=== PATIENT | male | born 1955 | race Caucasian/White ===

== ENCOUNTER 2017-03-25 13:58 | Emergency (ER) | payer BC ==
[~2017-03-25] VITALS: Ht 175.3 cm; Wt 90.7 kg
[2017-03-25 14:05] VITALS: BP 152/85
--- NOTE | 2017-03-25 14:11 | ED Neurological Problem ---
General Stated Complaint: SLURRED SPEECH//CANNOT HOLD ITEMS Source: patient, family Exam Limitations: no limitations (FABRICIO BECKFORD APRN) History of Present Illness Time seen by provider: 14:08 Initial Comments To ER with strokelike symptoms. He states that 1.5 hours ago while he was at work laying on his back working on a vehicle striking something with a hammer he noticed these symptoms. Symptoms included slurred speech and dropping tools with the left hand as well as left hand tingling. He went inside and sat down and his symptoms resolved after about 5 minutes. He's never had these symptoms before. He called his who brought him to the emergency room. He does report a slight headache to the posterior right side of the head. This time he is symptom-free. He does not smoke. He does not take daily aspirin or Plavix. Timing/Duration: 1-3 hours Severity: moderate Associated Symptoms: No nausea/vomiting, No numbness in legs/feet, paresthesia , No ringing in ears, No seizures, No sleepy, No slurred speech, No tingling in legs/feet (FABRICIO BECKFORD APRN) Allergies and Home Medications Allergies Coded Allergies: No Allergy Information Available (Unverified , 03/25/17) Constitutional: see HPI Eyes: No Symptoms Reported Ears, Nose, Mouth, Throat: no symptoms reported Respiratory: no symptoms reported Cardiovascular: no symptoms reported Genitourinary: no symptoms reported Musculoskeletal: see HPI Skin: no symptoms reported Psychiatric/Neurological: See HPI, Denies Anxiety, Denies Depressed, Denies Emotional Problems, Denies Cognitive Dysfunction, Headache, Denies Numbness, Denies [place] Seizures, Tingling Endocrine: No Symptoms Reported (FABRICIO BECKFORD APRN) Physical Exam Vital Signs Vital Sign - Last 12Hours 03/25/17 13:59 Temp 98.2 Pulse 88 Resp 16 B/P (MAP) 152/85 Pulse Ox 98 (JOE RAJPUT MD) Vital Signs Capillary Refill : (FABRICIO BECKFORD APRN) General Appearance: WD/WN, no apparent distress HEENT: PERRL/EOMI, normal ENT inspection Neck: non-tender, full range of motion Respiratory: normal breath sounds, no respiratory distress, no accessory muscle use Cardiovascular: regular rate, rhythm, no murmur Gastrointestinal: normal bowel sounds, non tender, soft Extremities: normal range of motion, non-tender Neurologic/Psychiatric: alert, normal mood/affect, oriented x 3 Crainal Nerves: normal hearing, normal speech, PERRL Motor/Sensory: no motor deficit, no sensory deficit, no pronator drift Skin: normal color, warm/dry (FABRICIO BECKFORD APRN) Stroke Onset of Symptoms Date of Onset of Symptoms: Mar 25, 2017 Time of Symptom Onset: 12:45 Onset of Symptoms: Yes (FABRICIO BECKFORD APRN) NIH Stroke Scale Assessment Select: Initial Level of Consciousness: 0=Alert Level of Consciousness-Questio: 0=Answers both month/age LOC Commands: 0=Performs both tasks Gaze: 0=Normal Visual Kaur: 1=Partial hemianopia Facial Movement (Facial Paresi: 0=Normal symmetrical mnt Motor Function-Arms Right: 0=No drift Motor Function-Arms Left: 0=No drift Motor Function-Legs Right: 0=No drift Motor Function-Legs Left: 0=No drift Limb Ataxia: 0=Absent Sensory: 0=Normal:no loss Best Language: 0=No aphasia Dysarthria: 0=Normal Extinction & Inattention: 0=No abnormality NIH Stroke Scale Score: 0 (FABRICIO BECKFORD APRN) Stroke Thrombolytic Exclusion Age 18 or Over: Yes Acute intenal hemorrhage: No History of CVA: No Uncontrolled Coagulation Defec: No Intracranial Hemorrhage: No Severe Hypertension: No GI or Bleed: No Subarachnoid Hemorrhage: No Intracranial Neoplasm/Aneurysm: No Oral Anticoagulants: No Surgery or Trauma: No Puncture of Non-Compressible V: No Recent CPR: No Diabetic Hemorrhagic Retinopat: No Organ Biopsy: No Recent Obstetric Delivery: No Glucose: No Significant Hepatic Dysfunctio: No NIH Stoke Scale >22: No Bacterial Endocarditis: No Pericarditis: No Improving Symptoms: No Platelets: No TPA Contraindication: No (FABRICIO BECKFORD APRN) Progress/Results/Core Measures Results/Orders Lab Results Laboratory Tests Test 03/25/17 14:10 Range/Units White Blood Count 9.3 4.3-11.0 10^3/uL Red Blood Count 4.95 4.35-5.85 10^6/uL Hemoglobin 14.9 13.3-17.7 G/DL Hematocrit 44 40-54 % Mean Corpuscular Volume 89 80-99 FL Mean Corpuscular Hemoglobin 30 25-34 PG Mean Corpuscular Hemoglobin Concent 34 32-36 G/DL Red Cell Distribution Width 12.6 10.0-14.5 % Platelet Count 322 130-400 10^3/uL Mean Platelet Volume 9.2 7.4-10.4 FL Neutrophils (%) (Auto) 67 42-75 % Lymphocytes (%) (Auto) 20 12-44 % Monocytes (%) (Auto) 8 0-12 % Eosinophils (%) (Auto) 5 0-10 % Basophils (%) (Auto) 1 0-10 % Neutrophils # (Auto) 6.2 1.8-7.8 X 10^3 Lymphocytes # (Auto) 1.8 1.0-4.0 X 10^3 Monocytes # (Auto) 0.7 0.0-1.0 X 10^3 Eosinophils # (Auto) 0.5 H 0.0-0.3 10^3/uL Basophils # (Auto) 0.1 0.0-0.1 10^3/uL Prothrombin Time 11.9 L 12.2-14.7 SEC INR Comment 0.9 0.8-1.4 Sodium Level 144 135-145 MMOL/L Potassium Level 4.1 3.6-5.0 MMOL/L Chloride Level 111 H 98-107 MMOL/L Carbon Dioxide Level 26 21-32 MMOL/L Anion Gap 7 5-14 MMOL/L Blood Urea Nitrogen 22 H 7-18 MG/DL Creatinine 1.14 0.60-1.30 MG/DL Estimat Glomerular Filtration Rate > 60 BUN/Creatinine Ratio 19 0-20 Glucose Level 96 70-105 MG/DL Calcium Level 9.9 8.5-10.1 MG/DL Total Bilirubin 0.5 0.1-1.0 MG/DL Aspartate Amino Transf (AST/SGOT) 20 5-34 U/L Alanine Aminotransferase (ALT/SGPT) 21 0-55 U/L Alkaline Phosphatase 82 40-136 U/L Total Protein 7.5 6.4-8.2 GM/DL Albumin 4.0 3.2-4.5 GM/DL (JOE RAJPUT MD) Medications Given in ED Current Medications Medications Dose Ordered Sig/Keiry Route Start Time Stop Time Status Last Admin Dose Admin Iohexol 100 ml ONCE ONCE IV 03/25/17 15:15 03/25/17 15:16 DC 03/25/17 15:33 80 ML Sodium Chloride 100 ml ONCE ONCE IV 03/25/17 15:15 03/25/17 15:16 DC 03/25/17 15:33 80 ML (JOE RAJPUT MD) Vital Signs/I&O Vital Sign - Last 12Hours 03/25/17 13:59 Temp 98.2 Pulse 88 Resp 16 B/P (MAP) 152/85 Pulse Ox 98 (JOE RAJPUT MD) Diagnostic Imaging Diagonstic Imaging: CT Comments NAME: DELILAH YATES [facility] REC#: [id number] PT STATUS: REG ER : 1955 PHYSICIAN: FABRICIO BECKFORD APRN ADMIT DATE: 03/25/17/ER Signed Date of Exam:03/25/17 CT HEAD WO-R/O STROKE EXAM: CT head. TECHNIQUE: Noncontrast axial images of the brain were obtained. INDICATION: Slurred speech No prior studies are available for comparison. FINDINGS: There is no intracranial hemorrhage, edema or mass effect. There is a suggestion of encephalomalacia in the right frontal lobe involving a small region adjacent to the sylvian fissure probably related to an old infarct. No hydrocephalus. The orbits appear unremarkable. There is a partial opacification in the ethmoidal air cells. The calvarium, the orbits appear grossly unremarkable.. 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 No intracranial hemorrhage. Dictated by: Dictated on workstation # [id number] Dict: 03/25/17 1542 Trans: 03/25/17 1546 [facility] [id number] Interpreted by: JUJU OLIVA MD Electronically signed by: JUJU OLIVA MD 03/25/17 1546 (FABRICIO BECKFORD APRN) Departure Communication Progress Notes 1617-I discussed the case with Dr. Patel from neurology at . She will review the CT scan with her radiologist and call back. (FABRICIO BECKFORD APRN) Progress Notes 1630 took over the patient for Tiffanie. Dr. Patel called back from stating she was able to see the noncontrast films but unable to see the CT angiography. We have asked radiology to rescan the images. [address] Patel. She reports the second transmission was successful and she had looked at the CT angiogram with radiology. There is there conclusion that this is a chronic obstruction on the right. There is also an approximately 40 percent lesion on the left carotid. She is concerned about unstable plaque there and would recommend an MRI with contrast to evaluate the plaque. In addition and empirically she recommends both aspirin and Plavix at this time period of 3 months and then single agent. He sees Dr. Hafsa Tran recently she would be the one to follow this finally she would like aggressive blood pressure control. These recommendations have been discussed with the patient and he is not that enthusiastic about all these medicines but would be willing to comply. He was reminded that the consequence would be a debilitating stroke. Accordingly we will make these arrangements. (JOE RAJPUT MD) Impression Impression: Primary Impression: TIA (transient ischemic attack) Additional Impression: Right carotid artery occlusion Disposition: 01 HOME, SELF-CARE Condition: Improved Departure-Patient Inst. Decision time for Depature: 17:38 (JOE RAJPUT MD) Referrals: NO,LOCAL PHYSICIAN (PCP) Primary Care Physician Patient Instructions: Transient Ischemic Attack (DC) Add. Discharge Instructions: MRI with contrast tomorrow. Aspirin 81 mg daily (tonight Plavix 75 mg tonight and then again tomorrow in the a.m. and daily in the a.m. Appointment Dr. Tran next week for blood pressure evaluation Scripts Clopidogrel Bisulfate (Plavix) 75 Mg Tablet 75 MG PO DAILY, #30 TAB Prov: JOE RAJPUT MD 03/25/17 FABRICIO BECKFORD APRN Mar 25, 2017 14:11 JOE RAJPUT MD Mar 25, 2017 16:39
[2017-03-25 14:32] LABS: BASOPHILS # (AUTO) 0.1 10^3/uL (0.0-0.1); BASOPHILS % (AUTO) 1 % (0-10); EOSINOPHILS # (AUTO) 0.5 10^3/uL (0.0-0.3); EOSINOPHILS % (AUTO) 5 % (0-10); LYMPHOCYTES # (AUTO) 1.8 X 10^3 (1.0-4.0); LYMPHOCYTES % (AUTO) 20 % (12-44); MEAN CORPUSCULAR HEMOGLOBIN 30 PG (25-34); MEAN CORPUSCULAR HGB CONC 34 G/DL (32-36); MEAN CORPUSCULAR VOLUME 89 FL (80-99); MEAN PLATELET VOLUME 9.2 FL (7.4-10.4); MONOCYTES # (AUTO) 0.7 X 10^3 (0.0-1.0); MONOCYTES % (AUTO) 8 % (0-12); NEUTROPHILS # (AUTO) 6.2 X 10^3 (1.8-7.8); NEUTROPHILS % (AUTO) 67 % (42-75); PLATELET COUNT 322 10^3/uL (130-400); RED BLOOD COUNT 4.95 10^6/uL (4.35-5.85); RED CELL DISTRIBUTION WIDTH 12.6 % (10.0-14.5); WHITE BLOOD COUNT 9.3 10^3/uL (4.3-11.0)
[2017-03-25 14:41] LABS: INR 0.9 (0.8-1.4); PROTHROMBIN TIME PATIENT 11.9 SEC (12.2-14.7)
[2017-03-25 14:45] LABS: ALANINE AMINOTRANSFERASE 21 U/L (0-55); ANION GAP 7 MMOL/L (5-14); ASPARTATE AMINO TRANSFERASE 20 U/L (5-34); BILIRUBIN,TOTAL 0.5 MG/DL (0.1-1.0); BLOOD UREA NITROGEN 22 MG/DL (7-18); BUN/CREATININE RATIO 19 (0-20); CALCIUM 9.9 MG/DL (8.5-10.1); CARBON DIOXIDE 26 MMOL/L (21-32); CHLORIDE 111 MMOL/L (98-107); CREATININE SERUM 1.14 MG/DL (0.60-1.30); GFR ESTIMATED > 60; GLUCOSE 96 MG/DL (70-105); HEMOLYSIS 8 (-100-29); ICTERUS 0.6 (-100-1.9); LIPEMIA 3 (-100-49); POTASSIUM 4.1 MMOL/L (3.6-5.0); SODIUM 144 MMOL/L (135-145); TOTAL PROTEIN 7.5 GM/DL (6.4-8.2)
[2017-03-25] MEDS ORDERED: NS 100 ML (IVPB) BAG IV ONE (15:15)
[2017-03-25] MEDS ORDERED: IOHEXOL 350 MG/ML 100 ML (OMNIPAQUE 350) VIAL IV ONE (15:15)
--- NOTE | 2017-03-25 15:48 | Diagnostic Imaging Report ---
EXAM: CT head. TECHNIQUE: Noncontrast axial images of the brain were obtained. INDICATION: Slurred speech No prior studies are available for comparison. FINDINGS: There is no intracranial hemorrhage, edema or mass effect. There is a suggestion of encephalomalacia in the right frontal lobe involving a small region adjacent to the sylvian fissure probably related to an old infarct. No hydrocephalus. The orbits appear unremarkable. There is a partial opacification in the ethmoidal air cells. The calvarium, the orbits appear grossly unremarkable.. 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 No intracranial hemorrhage. Dictated by: Dictated on workstation # [id number]
--- NOTE | 2017-03-25 16:42 | Diagnostic Imaging Report ---
PROCEDURE: CT angiography of the head and CT angiography of the neck with and without contrast. TECHNIQUE: Contiguous noncontrast images were obtained from the skull base through the vertex. After intravenous contrast administration, helical CT angiography of the neck was performed. Source data was reformatted into multiple MIP projections. Delayed post contrast acquisition was also obtained. INDICATION: Slurred speech. Left hand weakness. FINDINGS: CTA neck: There is complete occlusion of the right internal carotid artery just distal to its origin with recanalization of the artery in the carotid canal. The external carotid artery is patent. The common carotid artery is patent. The left common carotid and internal and external carotid arteries are patent. The left vertebral artery is dominant and appears patent. The nondominant right vertebral artery is also patent. The brachycephalic artery and the left subclavian and the right subclavian arteries are all patent. The soft tissues in the neck appear grossly unremarkable. The parotid, subclavian, and thyroid glands appear unremarkable. There is no soft tissue mass or lymphadenopathy identified. CTA head: The right internal carotid artery is occluded in the vertical segment as it enters the base of the skull with reconstitution in the horizontal portion of the carotid canal. The cavernous segment is patent. The right middle and anterior cerebral arteries are patent. The anterior communicating artery is patent. The left internal carotid artery is patent. The left anterior and middle cerebral arteries are patent. Posterior circulation demonstrates patent vertebral arteries, basilar artery and both posterior cerebral arteries are patent. The parenchymal phase of enhancement in the head demonstrates no enhancing lesion. There is also suggestion of old infarcts along the right frontal and parietal regions. There is mucosal thickening in the ethmoidal air cells seen and in the frontal sinuses. IMPRESSION: CTA neck: There is complete occlusion of the right internal carotid artery from its proximal aspect with reconstitution in the horizontal segment of the right carotid canal at the base of the skull level. CTA head: 1. After reconstitution of flow in the right internal carotid artery within the right carotid canal, more distally the intracranial segments of the right internal carotid artery are patent. The anterior, middle, and posterior cerebral arteries are patent. 2. Suggestion of small old right frontal and right parietal infarcts. 3. Mucosal thickening in ethmoidal air cells and the frontal sinuses. The findings were discussed with [place] by Dr. Bentley at time of dictation. Dictated by: Dictated on workstation # [id number]
[2017-03-25] MEDS ORDERED: CLOP75TA69 PO (17:42)
[2017-03-25 17:45] VITALS: BP 142/78
== END 2017-03-25 17:45 | disposition home or self-care (01) ==
LOC: EDUNIT# 13:58 → ER 14:00
DX: G45.9 Transient cerebral ischemic attack, unspecified (principal); I65.21 Occlusion and stenosis of right carotid artery
CPT/HCPCS: 36415; 70450; 70496; 70498; 80053; 85025; 85610; 93005

== ENCOUNTER → 2017-03-26 | Outpatient (CLI) | payer BC ==
[~2017-03-26] MED LIST: CLOP75TA69 PO; GADOBUTROL 15 MMOL/15 ML (GADAVIST) VIAL IV ONE
--- NOTE | 2017-03-26 15:22 | Diagnostic Imaging Report ---
PROCEDURE: MR angiography of the brain without the use of contrast. TECHNIQUE: 3D [id number] non contrast enhanced MR angiography of the head was performed. A source data was reformatted into rotating MIP projections. INDICATION: Slurred speech, left hand weakness. COMPARISON: CTA head and neck performed prior day. FINDINGS: Redemonstration of occlusion of the distal right internal carotid artery. There is reconstitution of flow within the supraclinoid right internal carotid artery, likely from contralateral filling via the posterior communicating artery and the A1 segment of the right anterior cerebral artery. The right middle cerebral artery is widely patent without stenosis. The left internal carotid artery is widely patent, distally. The left middle cerebral artery is widely patent with normal branching pattern. The bilateral anterior cerebral arteries are widely patent. Bilateral A1 segments are widely patent. No anterior communicating artery aneurysm. The basilar artery receives flow from both of the vertebral arteries. Basilar artery is widely patent. No aneurysm at the basilar tip. Posterior cerebral arteries are widely patent. No posterior communicating artery aneurysm. IMPRESSION: 1. Stable findings from prior day CTA head. There remains occlusion of the distal right internal carotid artery which has reconstitution of flow of the intracranial segment via filling from the right A1 segment of the anterior cerebral artery as well as the posterior communicating artery. 2. No high-grade stenosis or occlusion of the middle, anterior or posterior cerebral arteries. Dictated by: Dictated on workstation # [id number]
--- NOTE | 2017-03-26 15:30 | Diagnostic Imaging Report ---
PROCEDURE: MR angiography neck with and without contrast. TECHNIQUE: Pre and post contrast-enhanced MR angiography of the neck was performed. Source data was reformatted into rotating MIP projections. INDICATION: Slurred speech and left-sided weakness. COMPARISON: CTA neck performed prior day. FINDINGS: The bilateral common carotid arteries are widely patent. Again seen is complete occlusion of the right internal carotid artery at its origin. The entire cervical portion of the right internal carotid artery is occluded. There is a small amount of plaque within the proximal left internal carotid artery which results in less than 50% luminal narrowing by NASCET criteria. The cervical portion of the left internal carotid artery is otherwise widely patent. Antegrade flow in the bilateral vertebral arteries which are both patent and codominant. No high-grade stenosis of the vertebral arteries. IMPRESSION: 1. Small volume of atherosclerotic plaque within the proximal left internal carotid artery results in less than 50% luminal narrowing. 2. Unchanged occlusion of the right internal carotid artery at its origin with complete occlusion of the cervical portion of the right internal carotid artery. Dictated by: Dictated on workstation # [id number]
== END ==
LOC: RAD 13:05
PROVIDERS: ATTEND Internal Medicine
DX: I65.23 Occlusion and stenosis of bilateral carotid arteries (principal); G45.9 Transient cerebral ischemic attack, unspecified
CPT/HCPCS: 70544; 70549

== ENCOUNTER 2017-07-02 11:40 | Outpatient (CLI) | payer BC ==
[~2017-07-02] VITALS: Ht 175.3 cm; Wt 101.6 kg
[~2017-07-02 11:40] MED LIST changes: -GADOBUTROL 15 MMOL/15 ML (GADAVIST) VIAL IV ONE
[2017-07-02 11:50] VITALS: BP 152/80
[2017-07-02] MEDS ORDERED: BUDE10.2 IH (11:52)
[2017-07-02] MEDS ORDERED: ASPI-999 PO (11:52)
== END 2017-07-02 12:00 | disposition home or self-care (01) ==
LOC: PREOP 11:40
PROVIDERS: ATTEND Podiatrist Foot & Ankle Surgery
DX: Z01.818 Encounter for other preprocedural examination (principal); M20.11 Hallux valgus (acquired), right foot; M20.41 Other hammer toe(s) (acquired), right foot
CPT/HCPCS: 87081

== ENCOUNTER 2017-07-12 08:00 | Day surgery (SDC) | payer BC ==
[~2017-07-12] VITALS: Ht 175.3 cm; Wt 101.6 kg
[~2017-07-12 08:00] MED LIST changes: +ASPI-999 PO; +BUDE10.2 IH
[2017-07-12 09:00] VITALS: BP 148/73
[2017-07-12] MEDS ORDERED: ceFAZolin 1,000 MG (ANCEF) VIAL ONE (09:26)
[2017-07-12] MEDS ORDERED: NS (IVPB) 50 ML ONE (09:27)
[2017-07-12] MEDS ORDERED: LIDOCAINE 1% INJ 20 ML (XYLOCAINE) VIAL ONE (09:37)
[2017-07-12] MEDS ORDERED: DEXAMETHASONE 10 MG/ML (DECADRON) 1 ML VIAL ONE (09:37)
[2017-07-12] MEDS ORDERED: BUPIVACAINE 0.5% 30 ML (SENSORCAINE) VIAL ONE (09:37)
[2017-07-12] MEDS ORDERED: fentaNYL INJECTION 100 MCG/2 ML AMP ONE ×3 (09:38→14:17)
[2017-07-12] MEDS ORDERED: ONDANSETRON 4 MG/2 ML (SDV) Z0FRAN ONE (09:38)
[2017-07-12] MEDS ORDERED: LIDOCAINE PF 2% 5 ML (XYLOCAINE) VIAL ONE (09:38)
[2017-07-12] MEDS ORDERED: proPOfol 200 MG/20 ML (DIPRIVAN) VIAL IV ONE (09:38)
[2017-07-12] MEDS ORDERED: MIDAZOLAM 2 MG/2 ML (VERSED) VIAL ONE (09:39)
[2017-07-12] MEDS: LACTATED RINGERS 1,000 ML IV PRN ×2 (09:57→12:25)
[2017-07-12] MEDS ORDERED: ceFAZolin 1 GM/NS 50 ML IVPB IV ONE ×2 (10:00)
[2017-07-12] MEDS ORDERED: CATHETER FLUSH 10 ML SYR IV PRN (10:00)
[2017-07-12] MEDS ORDERED: BUPIVACAINE 0.25% 30 ML (SENSORCAINE) VIAL ONE (10:03)
--- NOTE | 2017-07-12 11:01 | Physical Therapy Ortho Eval ---
PT Orthopedic Evaluation Type of Surgery right bunonectomy with tendon relocation and hammer toe repair Prior Level of Function Current Living Status: Spouse Locomotion (Upon Admit): Independent Established Durable Medical Eq: Crutches Subjective Subjective Patient agrees to PT. He states he is has been practicing the use of crutches this morning. Steps Into Home: 2 Steps Accessories: No Railing Objective Objective bilateral LE WNL independent with all mobility Motor Control Motor Control: Motor Control WNL ROM ROM: WFL Strength Strength: WFL Transfer Transfers (B, C, W/C) (FIM): 7 Gait Gait Assistive Device: Crutches Right Lower Extremity: Right Weight Bearing Status RLE: Non Weight Bearing Left Lower Extremity: Left Weight Bearing Status LLE: Full Weight Bearing Gait (FIM): 6 Distance (FIM): 3=150 ft Gait Level of Assist: 6 Summary/Comments education with patient and family on importance of taking his time to ensure safety Treatment Rendered Treatment: Gait Train, Step Train Assessment/Goals Goal Time Frame: 1 Visit Safe Ambulation: Yes Plan Treatment Plan: Discharge PT/Family Agrees to Plan: Yes Time Time In: 905 Time Out: 920 Total Billed Treatment Time: 15 Billed Treatment Time 1 visit EVModC 15 min No EUGENIA TAVARES PT Jul 12, 2017 11:01
[2017-07-12] MEDS ORDERED: ONDANSETRON 4 MG/2 ML (SDV) Z0FRAN IVP PRN (13:00)
[2017-07-12] MEDS ORDERED: SEVOFLURANE (ULTANE) 15 ML INHAL SOLN ONE (13:39)
--- NOTE | 2017-07-12 13:57 | Progress Note-Pre Operative ---
Pre-Operative Progress Note H&P Reviewed The H&P was reviewed, patient examined and no changes noted. Date Seen by Provider: Jul 12, 2017 Time Seen by Provider: 10:30 Date H&P Reviewed: Jul 12, 2017 Time H&P Reviewed: 10:31 Pre-Operative Diagnosis: Hallux Valgus, Hypertrophic 2nd Metatarsal, Hammertoe 2nd, all right REYNA ELY DPM Jul 12, 2017 1:57 pm
[2017-07-12] MEDS ORDERED: LACTATED RINGERS 1,000 ML IV SCH (13:58)
--- NOTE | 2017-07-12 13:58 | Progress Note-Post Operative ---
Post-Operative Progess Note Surgeon (s)/Seismic Engineer (s) Surgeon REYNA ELY DPM Seismic Engineer: none Pre-Operative Diagnosis Hallux Valgus, Hypertrophic 2nd Metatarsal, Hammertoe 2nd, all right Post-Operative Diagnosis Same Procedure & Operative Findings Date of Procedure 07/12/17 Procedure Performed/Findings Lapidus-Felix bunionectomy, right 2nd Metatarsal osteotomy, right Reduction of Hammertoe 2nd, right Anesthesia Type General Estimated Blood Loss Estimated blood loss (mL): Minimal Specimens/Packing Specimens Removed None REYNA ELY DPM Jul 12, 2017 1:58 pm
[2017-07-12] MEDS ORDERED: HYDROcodone/APAP 5 MG/325 MG (LORTAB) TAB PO PRN (14:00)
[2017-07-12] MEDS ORDERED: HYDR-3812 PO (14:01)
[2017-07-12] MEDS ORDERED: CEPH500C PO (14:01)
[2017-07-12] MEDS: fentaNYL INJECTION 100 MCG/2 ML AMP IVP PRN ×2 (14:26→14:35)
--- NOTE | 2017-07-12 14:31 | Diagnostic Imaging Report ---
EXAMINATION: 2 views of the right foot. INDICATION: Baseline postoperative evaluation after bunionectomy. FINDINGS: There is K wire fusion through the interphalangeal joints of the second toe which also appears to pass through the MTP joint. The osteotomy and screw fixation of the head of the second metatarsal is seen. There is also evidence of osteotomy along the medial margin of the head of the first metatarsal and internal fixating wires through the proximal phalanx of the great toe. There is also internal fixation plate and screws and fusion along the tarsometatarsal joint at the base of the great toe. There is a slight valgus position of the metatarsophalangeal joint of the second toe. IMPRESSION: K wire fusion of the interphalangeal joints and the MTP joint of the second toe. This appears to be in slight valgus position. Dictated by: Dictated on workstation # [id number]
--- NOTE | 2017-07-12 14:50 | Diagnostic Imaging Report ---
EXAMINATION: Intraoperative views of the foot. FLUOROSCOPY TIME: 13 seconds of fluoroscopy time was provided to the OR. IMPRESSION: The provided images demonstrate an internal fixation plate and screws seen and fusion changes across the tarsal/metatarsal joint at the base of the first digit. There are also soft tissue changes along the medial aspect of the tarsal/metatarsal joint which appears to relate to a bunionectomy. Dictated by: Dictated on workstation # [id number]
[2017-07-12 15:05] VITALS: BP 136/75
[2017-07-12 15:35] VITALS: BP 143/79
[2017-07-12 16:15] VITALS: BP 139/69
[2017-07-12 16:22] VITALS: BP 139/69
--- NOTE | 2017-07-12 21:54 | OPERATIVE REPORT ---
DATE OF SERVICE: 07/12/2017 PREOPERATIVE DIAGNOSES: 1. Hallux abductovalgus metatarsal primus varus, right. 2. Hypertrophic 2nd metatarsal, right. 3. 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 POSTOPERATIVE DIAGNOSES: 1. Hallux abductovalgus metatarsal primus varus, right. 2. Hypertrophic 2nd metatarsal, right. 3. 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 PROCEDURE: 1. Modified Lapidus-Felix bunionectomy, right. 2. Second metatarsal osteotomy. 3. Reduction of hammertoe right 2nd digit with flexor tendon transfer. WOUND CLASS: Clean. ANESTHESIA: General. HEMOSTASIS: Pneumatic thigh tourniquet at 300 mmHg. INDICATION: This 62-year-old male presents complaining of painful bunion and hammertoe on the right foot. The right 2nd toe overlaps the great toe. There has been a problem for several years with shoe gear and ambulation. No guarantees were extended to the patient and he is willing to proceed. PROCEDURE: The patient was brought back to the operating table, placed in secure supine position. General anesthetic was then induced. Appropriate timeout was performed. Pneumatic thigh tourniquet was placed on the right lower extremity over several layers of padding. The right foot was then prepped and draped in the normal sterile manner. The right foot was then elevated and allowed to exsanguinate after which the tourniquet was inflated to 300 mmHg. Attention was then directed to the dorsal aspect of the right 1st metatarsal cuneiform area where a 6 cm longitudinal linear incision was created. The incision was deepened down to the capsule tissue with great care to identify and retract all vital neurovascular structures, as well as the extensor tendons. The extensor hallucis longus was medially deviated for dissection purposed and a longitudinal capsulotomy was performed. The articular cartilage to the medial cuneiform, base of the 1st metatarsal was then resected with a power sagittal saw. The angle of the saw was perpendicular to the long axis of the 2nd metatarsal when cutting the distal portion of the medial cuneiform and is also perpendicular to the long axis of the 1st metatarsal when cutting away the cartilage at the base of the 1st metatarsal. This reduced the extensive 1st intermetatarsal angle quite nicely, but not quite to 0 degrees. A temporary fixation was utilized with a Steinmann pin from plantar distal to proximal dorsal, across the 1st metatarsal cuneiform joint. After the metatarsal was derotated, allowing the sesamoids to come down into a more appropriate alignment with what would be the weightbearing surface of the right foot. Next, a Gorilla Lapidus plate was then applied with temporary fixation after which the proximal portion of the right standard Lapidus plate was fixated with a 16 mm length 2.7 locking screw followed by a 24 mm 2.7 locking screw. Next, a headed screw of 38 mm, 3.5 headed screw was driven from dorsal distal to plantar proximal across the arthrodesis site. Excellent bony apposition fixation was appreciated at this time. The 3 distal screws to the plate were then affixed, all 2.7 mm of 20, 18 and 18 mm of length. The plantar temporary fixation was removed. It also should be noted that a medial incision was created to facilitate the plantar screw placement. The incision was approximately 1 mm in length and blunt dissection was carried out down to bone. The wound was flushed with copious amounts of normal saline. A 2nd incision was created to the distal aspect of the 1st metatarsal from the surgical neck down to the interphalangeal joint. The incision was deepened in the same plane with great care to identify and retract all vital neurovascular structures. All the necessary blood vessels were cauterized as encountered. The incision was deepened down to the capsule where a longitudinal capsulotomy was performed exposing the hypertrophic medial eminence to the 1st metatarsal head, which was resected utilizing a power sagittal saw. The wound was flushed with copious amounts of normal saline. A lateral release to the 1st metatarsophalangeal joint was then performed with a lateral capsulorrhaphy, release of the conjoined tendon of the adductor hallucis and release of the fibula sesamoidal ligament. The hallux was then forcibly adducted to release any additional fibers holding in its abnormal position. Attention was then directed to the proximal phalanx of the right hallux where an Felix type osteotomy was performed. Subperiosteal dissection was performed to the diaphysis of the proximal phalanx. A wedge of bone was resected with the base medial and lateral cortices held intact. Two Clinical Research Analyst holes were created at the dorsomedial aspect of the osteotomy where a 28-gauge monofilament wire was passed through this, captain airline pilot hole securing the osteotomy in a closed position. Excellent bony apposition and fixation was appreciated. Good range of motion was noted at the 1st metatarsophalangeal joint with significant reduction of the hallux valgus deformity. The wounds were flushed with copious amounts of normal saline. Deep closure was performed with 3-0 Vicryl, superficial with 4-0 Vicryl, skin closure with 4-0 Prolene in a horizontal mattress type stitch. Attention was then directed to the dorsal aspect of the right 2nd ray where an incision was created from the surgical neck of the 2nd metatarsal down to the distal interphalangeal joint. The incision was deepened down to the extensor tendon where a Z-slide lengthening was performed. The extensor tendon was reflected proximally and extensor bright released overlying the metatarsophalangeal joint. Dorsal capsulorrhaphy was performed. The surgical neck of the 2nd metatarsal was exposed and a Ame type osteotomy was then performed. The capital fragment was translocated proximally and fixated in its corrected position more proximally and medially deviated and fixated in its corrected position utilizing a 2.0 snap off screw of 13 mm of length. Good bony apposition of fixation was appreciated. The excessive bone to the 2nd metatarsal was then resected with a rongeur. Attention was then directed to the medial deviated and dorsally contracted proximal phalanx of the right 2nd digit. A captain airline pilot hole of 9/64 was driven from dorsal to plantar at the proximal diaphysis of the proximal phalanx. Dissection was carried out to the proximal interphalangeal joint of the right 2nd toe where the mediolateral collateral ligaments were released. The flexor digitorum longus was identified and cut at this level. It was then redirected from plantar to dorsal through the proximal captain airline pilot hole. Physiological tension was then appreciated at this time. The tendon was then split and the lateral portion of the tendon was used to reinforce the lateral collateral ligament to the 2nd metatarsophalangeal joint. The medial aspect of the split tendon was then sutured distally. Next, the head of the proximal phalanx was fashioned into a peg with a sagittal saw and power bur and a hole created in the base of the middle phalanx and a hole created in the base of the middle phalanx with a power bur. Next, a 0.062 smooth K-wire was driven down the toe and into the metatarsal head with the digit in a plantarflexed and laterally deviated orientation. The excess K-wire was cut and a protective vault placed over the end of the wire. The wound was flushed with copious amounts of normal saline and closure was then performed in layers. Deep closure was performed with 3-0 Vicryl, superficial with 4-0 Vicryl, and skin closure with 4-0 Prolene in a horizontal mattress type stitch. The patient tolerated the anesthesia and procedure well and transported from the operating room to the recovery area with vital signs stable and vascular status intact to all the digits of the right foot. The patient is to follow up in my office in 10 days period of time or sooner if necessary. He was given a prescription for Keflex and Vicodin. Job ID: [id number] DocumentID: [id number] Dictated Date: 07/12/2017 14:14:43 Recreation Leader Date: 07/12/2017 21:54:07 Dictated By: TOMAS CROUCH
== END 2017-07-12 16:22 | disposition home or self-care (01) ==
LOC: SDC 08:00
PROVIDERS: ATTEND Podiatrist Foot & Ankle Surgery
DX: M20.41 Other hammer toe(s) (acquired), right foot (principal); M89.371 Hypertrophy of bone, right ankle and foot; I10 Essential (primary) hypertension; J44.9 Chronic obstructive pulmonary disease, unspecified; Z86.73 Personal history of transient ischemic attack (TIA), and cerebral infarction without residual deficits; Z79.82 Long term (current) use of aspirin; Z87.891 Personal history of nicotine dependence
CPT/HCPCS: 73620

== ENCOUNTER 2021-10-23 11:22 | Emergency (ER) | payer MEDICARE ==
[~2021-10-23] VITALS: Ht 175 cm; Wt 108.0 kg
[~2021-10-23 11:22] MED LIST changes: +ACHD5005 PO; +CEPH500C PO
[2021-10-23] MEDS ORDERED: HYDROcodone/APAP 5 MG/325 MG (LORTAB) TAB PO ONE (12:30)
--- NOTE | 2021-10-23 12:38 | ED GU-Male ---
General Chief Complaint: - Reproductive Stated Complaint: GROIN/BACK PAIN Nursing Triage Note: PT CO OF R SIDE OF SCROTUM FOR A COUPLE DAYS, STATES HAD PAIN 7/10 YESTERDAY THAT WENT UP TO ABD.DENIES FEVER, DENIES DIFFICULTY W URINATION, DENIES FEVERS. Source: patient Exam Limitations: no limitations History of Present Illness Date Seen by Provider: Oct 23, 2021 Time Seen by Provider: 13:43 Initial Comments To ER with 3 to 4 days of scrotal pain. This began a few days ago on the right side and now involves the left testicle. No known cause. No dysuria. Timing/Duration: getting worse Severity/Quality: moderate Radiation: none Activities at Onset: none Prior Genitourinary Problems: none Associated Symptoms: denies symptoms Allergies and Home Medications Allergies Coded Allergies: naproxen (Verified Allergy, Unknown, HIVES, 07/02/17) Patient Home Medication List Home Medication List Reviewed: Yes Aspirin (Aspirin) 81 Mg Tab.chew, 81 MG PO DAILY, (Reported) Entered as Reported by: FAMILIA LA on 07/02/17 1152 Budesonide/Formoterol Fumarate (Symbicort 160-4.5 Mcg Inhaler) 10.2 Gm Hfa.aer.ad, 2 PUFF IH DAILY, (Reported) Entered as Reported by: FAMILIA LA on 07/02/17 1152 Cephalexin (Cephalexin) 500 Mg Capsule, 1 CAP PO TID Prescribed by: REYNA ELY on 07/12/17 1401 Hydrocodone Bit/Acetaminophen (Lortab 5 Mg Tablet) 1 Each Tablet, 1-2 TAB PO Q4-6HR PRN for PAIN Prescribed by: REYNA ELY on 07/12/17 1401 Hydrocodone/Acetaminophen (Hydrocodone-Acetamin 5-325 mg) 1 Each Tablet, 1 TAB PO Q4H PRN for PAIN-MODERATE (5-7) Prescribed by: FABRICIO BECKFORD on 10/23/21 1345 Review of Systems Review of Systems Constitutional: see HPI EENTM: see HPI Respiratory: no symptoms reported Cardiovascular: no symptoms reported Genitourinary: see HPI Musculoskeletal: see HPI Skin: no symptoms reported Psychiatric/Neurological: No Symptoms Reported Endocrine: No Symptoms Reported Past Sapjlia-Uugviq-Lrskez Hx Seasonal Allergies Seasonal Allergies: Yes Past Medical History Eye Surgery COPD Hypertension TIA Arthritis Physical Exam Vital Signs Vital Signs - First Documented 10/23/21 11:35 Temp 36.3 Pulse 88 Resp 20 B/P (MAP) 197/83 (121) Pulse Ox 97 Capillary Refill : Less Than 3 Seconds Height, Weight, BMI Height: 5'9.00" Weight: 224lbs. 0.0oz. [id number]; 35.00 BMI Method:Stated General Appearance: WD/WN, no apparent distress HEENT: PERRL/EOMI, normal ENT inspection Respiratory: lungs clear, normal breath sounds, no respiratory distress, no accessory muscle use Gastrointestinal: normal bowel sounds, non tender, soft, other (Does appear to be a hydrocele on both side and his scrotum is little enlarged) Extremities: normal range of motion, non-tender Neurologic/Psychiatric: alert, normal mood/affect, oriented x 3 Skin: normal color, warm/dry Progress/Results/Core Measures Suspected Sepsis SIRS Temperature: Pulse: 88 Respiratory Rate: 20 Laboratory Tests 10/23/21 12:50: White Blood Count 5.7 Blood Pressure 197 /83 Mean: 121 Laboratory Tests 10/23/21 12:50: Creatinine 1.08, Platelet Count 311, Total Bilirubin 0.4 Results/Orders Lab Results Laboratory Tests Test 10/23/21 11:49 10/23/21 12:50 Range/Units Urine Color YELLOW Urine Clarity CLEAR Urine pH 6.0 5-9 Urine Specific [place] >=1.030 1.016-1.022 Urine Protein NEGATIVE NEGATIVE Urine Glucose (UA) NEGATIVE NEGATIVE Urine Ketones NEGATIVE NEGATIVE Urine Nitrite NEGATIVE NEGATIVE Urine Bilirubin NEGATIVE NEGATIVE Urine Urobilinogen 0.2 < = 1.0 MG/DL Urine Leukocyte Esterase NEGATIVE NEGATIVE Urine RBC (Auto) NEGATIVE NEGATIVE Urine RBC NONE /HPF Urine WBC RARE /HPF Urine Squamous Epithelial Cells RARE /HPF Urine Crystals NONE /LPF Urine Bacteria NEGATIVE /HPF Urine Casts NONE /LPF Urine Mucus SMALL H /LPF Urine Culture Indicated NO White Blood Count 5.7 4.3-11.0 10^3/uL Red Blood Count 5.01 4.30-5.52 10^6/uL Hemoglobin 14.9 13.3-17.7 g/dL Hematocrit 45 40-54 % Mean Corpuscular Volume 89 80-99 fL Mean Corpuscular Hemoglobin 30 25-34 pg Mean Corpuscular Hemoglobin Concent 33 32-36 g/dL Red Cell Distribution Width 12.2 10.0-14.5 % Platelet Count 311 130-400 10^3/uL Mean Platelet Volume 8.8 L 9.0-12.2 fL Immature Granulocyte % (Auto) 0 % Neutrophils (%) (Auto) 55 42-75 % Lymphocytes (%) (Auto) 26 12-44 % Monocytes (%) (Auto) 11 0-12 % Eosinophils (%) (Auto) 7 0-10 % Basophils (%) (Auto) 1 0-10 % Neutrophils # (Auto) 3.1 1.8-7.8 10^3/uL Lymphocytes # (Auto) 1.5 1.0-4.0 10^3/uL Monocytes # (Auto) 0.6 0.0-1.0 10^3/uL Eosinophils # (Auto) 0.4 H 0.0-0.3 10^3/uL Basophils # (Auto) 0.1 0.0-0.1 10^3/uL Immature Granulocyte # (Auto) 0.0 0.0-0.1 10^3/uL Sodium Level 139 135-145 MMOL/L Potassium Level 4.2 3.6-5.0 MMOL/L Chloride Level 106 98-107 MMOL/L Carbon Dioxide Level 27 21-32 MMOL/L Anion Gap 6 5-14 MMOL/L Blood Urea Nitrogen 22 H 7-18 MG/DL Creatinine 1.08 0.60-1.30 MG/DL Estimat Glomerular Filtration Rate 75 BUN/Creatinine Ratio 20 Glucose Level 99 70-105 MG/DL Calcium Level 9.3 8.5-10.1 MG/DL Corrected Calcium 9.3 8.5-10.1 MG/DL Total Bilirubin 0.4 0.1-1.0 MG/DL Aspartate Amino Transf (AST/SGOT) 16 5-34 U/L Alanine Aminotransferase (ALT/SGPT) 19 0-55 U/L Alkaline Phosphatase 70 40-136 U/L Total Protein 7.1 6.4-8.2 GM/DL Albumin 4.0 3.2-4.5 GM/DL My Orders Orders - FABRICIO BECKFORD APRN Ua Culture If Indicated (10/23/21 12:23) Hydrocodone/Apap 5/325 Tablet (Lortab 5 (10/23/21 12:30) Ct Abd/Pelvis Wo(Kidney Stone) (10/23/21 12:32) Us Scrotum (Testicle) 00763 (10/23/21 12:32) Cbc With Automated Diff (10/23/21 12:32) Comprehensive Metabolic Panel (10/23/21 12:32) Medications Given in ED Current Medications Medications Dose Ordered Sig/Keiry Route Start Time Stop Time Status Last Admin Dose Admin Acetaminophen/ Hydrocodone Bitart 1 ea ONCE ONCE PO 10/23/21 12:30 10/23/21 12:31 DC 10/23/21 14:10 1 EA Vital Signs/I&O 10/23/21 11:35 Temp 36.3 Pulse 88 Resp 20 B/P (MAP) 197/83 (121) Pulse Ox 97 Capillary Refill : Less Than 3 Seconds Blood Pressure Mean: 121 Departure Impression Primary Impression: Bilateral hydrocele Disposition: 01 HOME, SELF-CARE Condition: Stable Departure-Patient Inst. Decision time for Depature: 13:44 Referrals: NO,LOCAL PHYSICIAN (PCP) Primary Care Physician ELLA BESS MD Patient Instructions: Hydrocele Add. Discharge Instructions: 1. Pain medication as directed. Call Dr. BESS from urology to make an appointment to be seen or a urologist of your choosing. Return to ER for any worsening. All discharge instructions reviewed with patient and/or family. Voiced understanding. Scripts Hydrocodone/Acetaminophen (Hydrocodone-Acetamin 5-325 mg) 1 Each Tablet 1 TAB PO Q4H PRN for PAIN-MODERATE (5-7), #10 TAB Prov: FABRICIO BECKFORD PERCOLATOR OPERATOR 10/23/21 FABRICIO BECKFORD PERCOLATOR OPERATOR Oct 23, 2021 12:38
[2021-10-23 12:44] LABS: BILIRUBIN,URINE NEGATIVE (NEGATIVE); CLARITY,URINE CLEAR; COLOR,URINE YELLOW; GLUCOSE, URINE (UA) NEGATIVE (NEGATIVE); KETONES,URINE NEGATIVE (NEGATIVE); LEUKOCYTE ESTERASE ,URINE NEGATIVE (NEGATIVE); NITRITE,URINE NEGATIVE (NEGATIVE); PROTEIN,URINE NEGATIVE (NEGATIVE)
[2021-10-23 12:56] LABS: BASOPHILS # (AUTO) 0.1 10^3/uL (0.0-0.1); BASOPHILS % (AUTO) 1 % (0-10); EOSINOPHILS # (AUTO) 0.4 10^3/uL (0.0-0.3); EOSINOPHILS % (AUTO) 7 % (0-10); HEMATOCRIT 45 % (40-54); HEMOGLOBIN 14.9 g/dL (13.3-17.7); LYMPHOCYTES # (AUTO) 1.5 10^3/uL (1.0-4.0); LYMPHOCYTES % (AUTO) 26 % (12-44); MEAN CORPUSCULAR HEMOGLOBIN 30 pg (25-34); MEAN CORPUSCULAR HGB CONC 33 g/dL (32-36); MEAN CORPUSCULAR VOLUME 89 fL (80-99); MEAN PLATELET VOLUME 8.8 fL (9.0-12.2); MONOCYTES # (AUTO) 0.6 10^3/uL (0.0-1.0); MONOCYTES % (AUTO) 11 % (0-12); NEUTROPHILS # (AUTO) 3.1 10^3/uL (1.8-7.8); NEUTROPHILS % (AUTO) 55 % (42-75); PLATELET COUNT 311 10^3/uL (130-400); WHITE BLOOD COUNT 5.7 10^3/uL (4.3-11.0)
[2021-10-23 13:01] LABS: WBC,URINE RARE /HPF
[2021-10-23 13:02] LABS: BACTERIA,URINE NEGATIVE /HPF; SQUAMOUS EPITHELIAL CELL,UR RARE /HPF
[2021-10-23 13:05] LABS: POTASSIUM 4.2 MMOL/L (3.6-5.0)
[2021-10-23 13:06] LABS: CALCIUM 9.3 MG/DL (8.5-10.1)
[2021-10-23 13:07] LABS: TOTAL PROTEIN 7.1 GM/DL (6.4-8.2)
[2021-10-23 13:09] LABS: BILIRUBIN,TOTAL 0.4 MG/DL (0.1-1.0)
[2021-10-23 13:11] LABS: CREATININE SERUM 1.08 MG/DL (0.60-1.30)
--- NOTE | 2021-10-23 13:26 | Diagnostic Imaging Report ---
PROCEDURE: CT urinary tract, rule out kidney stone. TECHNIQUE: Multiple contiguous axial images were obtained through the abdomen and pelvis without the use of intravenous contrast. Auto Exposure Controls were utilized during the CT exam to meet ALARA standards for radiation dose reduction. INDICATION: Pain in the right scrotum. COMPARISON: No prior studies are available for comparison. FINDINGS: The lung bases are clear. There is a cyst in the left lobe of the liver measuring 5.4 cm in size. Gallbladder is unremarkable apart from a probable tiny stone. There is no biliary ductal dilatation. Pancreas and spleen are unremarkable. No adrenal mass is identified. There is a tiny nonobstructing calculus in the lower pole of the left kidney. There is a 2.6 cm cyst in the lower pole of the right kidney. No definite hydronephrosis or ureteral calculi are seen. No bladder calculi are detected. Aorta is calcified but nonaneurysmal. Bowel loops are nonobstructed. Appendix is visualized in the right lower quadrant and unremarkable. There is diverticulosis of the sigmoid colon and descending colon but no evidence of acute diverticulitis. There is no free fluid or fluid collection identified. Prostate is unremarkable. IMPRESSION: 1. Hepatic and renal cysts. 2. Tiny nonobstructing left renal calculus. No ureteral calculi or hydronephrosis is identified. 3. No CT evidence of acute appendicitis. 4. Uncomplicated diverticulosis. Dictated by: Dictated on workstation # [id number]
[2021-10-23] MEDS ORDERED: ACHD5005 PO (13:45)
[2021-10-23 14:30] VITALS: BP 162/74
--- NOTE | 2021-10-23 14:42 | Diagnostic Imaging Report ---
CLINICAL INDICATION: Patient with groin and back pain. EXAM: Ultrasound of the scrotum with multiple real-time grayscale images were obtained in various projections. Additional spectral analysis and color Doppler duple images were also obtained. COMPARISON: CT scan of the abdomen and pelvis without contrast dated 10/23/2021. FINDINGS: Right testicle: Right testis measures 4.7 cm x 2.7 cm x 3.3 cm. The right testis is homogeneous in echogenicity with no focal mass present. Blood flow is present in right testis on color flow imaging and has normal appearing spectral Doppler waveform. Right epididymis is unremarkable. There is no varicocele. There is a small right hydrocele. There is no testicular torsion. Left testicle: Left testis measures 4.7 cm x 3.3 cm x 3.0 cm. Left testis is homogeneous in echogenicity, with no focal mass present. Blood flow is present in left testis on color flow imaging and has normal appearing spectral Doppler waveform. There is a 6 mm x 6 mm x 6 mm hypoechoic area, which is superiorly adjacent to the epididymal head region and not attached to the testicle. This cyst is within the right hydrocele and abuts the anterior wall of the scrotal sac in the suspected region of the parietal layer of the tunica vaginalis. There is no debris within the cystic structure and no Doppler flow. Otherwise, the epididymis is unremarkable. There is no varicocele. There is a small left hydrocele. There is no testicular torsion. IMPRESSION: 1: There is a 6 mm hypoechoic cystic structure within the scrotal sac, which is superiorly adjacent to the epididymal head and not attached to the testicle. This area may be fixed along the anterior scrotal wall and is within the right hydrocele region. This is suspected to represent a benign cystic structure such as tunica vaginalis cyst. 2: Small bilateral hydroceles. 3: The remainder of the scrotal ultrasound exam is unremarkable. Dictated by: Dictated on workstation # [id number]
== END 2021-10-23 14:36 | disposition home or self-care (01) ==
LOC: EDUNIT# 11:22 → ER 11:25
DX: N43.3 Hydrocele, unspecified (principal); I10 Essential (primary) hypertension; J44.9 Chronic obstructive pulmonary disease, unspecified; Z79.51 Long term (current) use of inhaled steroids
CPT/HCPCS: 36415; 74176; 76870; 80053; 81000; 85025

== ENCOUNTER → 2023-07-12 | Outpatient (CLI) | payer MEDICARE ==
[~2023-07-12] MED LIST changes: +CLOP-31 PO; -CLOP75TA69 PO
--- NOTE | 2023-07-12 18:38 | Diagnostic Imaging Report ---
INDICATION: Right knee pain. AP, lateral, and sunrise views of the right knee are obtained. FINDINGS: There is medial joint space narrowing with osteophyte formation. Lateral compartment is preserved. There is prominent patellofemoral joint space narrowing and osteophyte formation. There is no overt joint effusion. IMPRESSION: Osteoarthritic changes, most prominent in the medial and patellofemoral compartments. No acute bony abnormality. Dictated by: Dictated on workstation # [id number]
== END ==
LOC: RAD 13:59
PROVIDERS: ATTEND Family Medicine
DX: M17.11 Unilateral primary osteoarthritis, right knee (principal)
CPT/HCPCS: 73564